=== PATIENT | female | born 1965 | race African-American/Black ===

== ENCOUNTER 2023-02-08 08:00 | Outpatient (CLI) | payer BC | END 2023-02-08 08:01 | disposition home or self-care (01) | LOC: BICMAMMO 08:00 | PROVIDERS: ATTEND Internal Medicine Rheumatology | DX: Z13.820 Encounter for screening for osteoporosis (principal); Z78.0 Asymptomatic menopausal state | CPT/HCPCS: 77080 ==

== ENCOUNTER 2023-12-10 08:26 | Outpatient (CLI) | payer BC | END 2023-12-10 08:27 | disposition home or self-care (01) | LOC: RAD 08:26 | PROVIDERS: ATTEND Specialist | DX: M25.512 Pain in left shoulder (principal); M12.812 Other specific arthropathies, not elsewhere classified, left shoulder ==

== ENCOUNTER 2024-02-15 12:41 | Outpatient (CLI) | payer BC | END 2024-02-15 12:42 | disposition home or self-care (01) | LOC: BICMAMMO 12:41 | PROVIDERS: ATTEND Specialist | DX: Z12.31 Encounter for screening mammogram for malignant neoplasm of breast (principal) | CPT/HCPCS: 77067 ==

== ENCOUNTER 2024-02-29 08:07 | Outpatient (CLI) | payer BC | END 2024-02-29 08:08 | disposition home or self-care (01) | LOC: BICMAMMO 08:07 | PROVIDERS: ATTEND Specialist | DX: M81.0 Age-related osteoporosis without current pathological fracture (principal) | CPT/HCPCS: 77080 ==

== ENCOUNTER 2025-02-20 07:41 | Outpatient (CLI) | payer BC | END 2025-02-20 07:42 | disposition home or self-care (01) | LOC: BICMAMMO 07:41 | PROVIDERS: ATTEND Specialist | DX: Z12.31 Encounter for screening mammogram for malignant neoplasm of breast (principal); Z80.3 Family history of malignant neoplasm of breast | CPT/HCPCS: 77063; 77067 ==